=== PATIENT | female | born 1980 | race Caucasian/White ===

== ENCOUNTER 2020-11-08 15:21 | Outpatient (CLI) | payer BC ==
[2020-11-09 01:05] LABS: SARS-CoV-2 PCR by NAA Not Detected (NotDetected)
== END 2020-11-08 15:22 | disposition home or self-care (01) ==
LOC: LABBT 15:21
PROVIDERS: ATTEND Surgery
DX: Z01.812 Encounter for preprocedural laboratory examination (principal); K60.3 Anal fistula; Z20.822 Contact with and (suspected) exposure to COVID-19
CPT/HCPCS: 87635; U0003; U0005

== ENCOUNTER 2020-11-13 10:05 | Day surgery (SDC) | payer BC ==
[2020-11-10 13:37] VITALS: BMI 182.6
[2020-11-13] MEDS ORDERED: Bupivacaine 0.25% HCL 30 ML VIAL ONE (10:30)
[2020-11-13] MEDS ORDERED: EPINEPHrine 1 MG/ML AMP ONE (10:30)
[2020-11-13] MEDS ORDERED: Midazolam HCl 2 mg/2 ml Vial ONE ×2 (11:40→12:12)
[2020-11-13] MEDS ORDERED: Scopolamine 1.5 mg/72 hour Patch ONE (11:40)
[2020-11-13] MEDS ORDERED: Fentanyl 100 MCG/2 ML VIAL ONE ×2 (11:41→13:23)
[2020-11-13] MEDS ORDERED: Glycopyrrolate 0.2 MG/ML 5 ML SYRINGE ONE (12:21)
[2020-11-13] MEDS ORDERED: Dexamethasone 20 MG/5 ML VIAL ONE (12:21)
[2020-11-13] MEDS ORDERED: Ketorolac Tromethamine 30 MG/ML VIAL ONE ×2 (12:21→13:12)
[2020-11-13] MEDS ORDERED: Rocuronium Bromide 10 MG/ML (10ML VIAL) ONE (12:21)
[2020-11-13] MEDS ORDERED: Ondansetron PF 4 MG/2 ML Vial ONE (12:21)
[2020-11-13] MEDS ORDERED: PROPOFOL 200 MG/20 ML VIAL ONE (12:21)
[2020-11-13] MEDS ORDERED: Lidocaine 1% PF 5 ML VIAL ONE (12:21)
[2020-11-13] MEDS ORDERED: HYDROcodone/Acetaminophen 5/325 mg Tablet ONE (14:28)
== END 2020-11-13 15:07 | disposition home or self-care (01) ==
LOC: SDC 10:05
PROVIDERS: ATTEND Surgery
PROC: 0DBQXZZ Excision of Anus, External Approach (ICD-10-PCS; principal; 2020-11-13)
DX: K60.3 Anal fistula (principal); Z87.891 Personal history of nicotine dependence
CPT/HCPCS: J0171; J0690; J1100; J1885; J2250; J2405; J2704; J3010; S0020